=== PATIENT | female | born 1970 | race American Indian/Alaskan Native ===

== ENCOUNTER 2016-05-24 10:30 | Outpatient (CLI) | payer OTHER ==
--- NOTE | 2016-05-24 11:45 | XRay Report ---
LEFT HAND, 2 views: History: Left hand pain. The bony architecture is intact. Bony alignment is normal. No soft tissue abnormalities are seen. The joint spaces appear preserved. IMPRESSION: Normal left hand.
--- NOTE | 2016-05-24 11:45 | XRay Report ---
RIGHT WRIST, 2 VIEWS: History: Right wrist pain. Routine views demonstrate the carpal bones to be well mineralized with well preserved bony mineralization and interosseous joint spaces. The carpal and adjacent articular bones have normal contours. The surrounding soft tissues are unremarkable. IMPRESSION: Unremarkable right wrist.
--- NOTE | 2016-05-24 11:45 | XRay Report ---
Lumbar spine 3 views: History: Lumbar pain. Findings: Normal height of vertebral bodies and intervertebral disc. Normal articular surfaces. Mild degenerative changes facet joints L4-L5 and L5-S1. No fracture. Normal soft tissues. Impression: Mild degenerative changes posterior elements lower lumbar spine.
== END 2016-05-24 10:31 | disposition home or self-care (01) ==
LOC: XRAY 10:30
PROVIDERS: ATTEND Internal Medicine
DX: M47.896 Other spondylosis, lumbar region (principal); I10 Essential (primary) hypertension
CPT/HCPCS: 72100